=== PATIENT | male | born 1955 ===

== ENCOUNTER 2021-11-16 15:48 | Emergency (ER) | payer BC ==
[2021-11-16] MEDS ORDERED: NA CHLORIDE 0.9% 500 ML ONE (17:34)
[2021-11-16 17:42] LABS: Urine Blood 1+ (Negative); Urine Glucose Negative (Negative); Urine Protein Negative (Negative); Urine Specific Gravity >=1.030 (1.005-1.030)
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
--- NOTE | 2021-11-16 18:26 | RAD REPORT ---
EXAM DESCRIPTION: RAD - Hip Left 2 View - 11/16/2021 5:42 pm CLINICAL HISTORY: PAIN COMPARISON: No comparisons FINDINGS: AP and frogleg views of the left hip were obtained. There is no fracture or dislocation. No acute or destructive bony process seen. Minimal degenerative change along the superior acetabular rim. Mild SI joint degenerative changes are present. No soft tissue abnormality. IMPRESSION: Negative left hip examination for acute or significant findings.
[2021-11-16 18:27] LABS: Absolute Lymphocytes (CBC) 0.9 K/uL (0.7-4.9); Hematocrit 40.4 % (39.6-49.0); Lymphocytes % 6.6 % (15.3-44.8); MPV 7.8 fL (7.6-11.3); RBC Red Blood Cell Count 4.31 M/uL (4.33-5.43)
[2021-11-16 18:39] LABS: Potassium 4.3 mmol/L (3.5-5.1)
[2021-11-16] MEDS ORDERED: TETANUS & DIPHTHERIA TOX,ADULT 0.5 ML VIAL ONE (19:08)
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
[2021-11-16 21:43] VITALS: TEMP 99; O2SAT 100
[2021-11-16 21:45] VITALS: BP 139/88
== END 2021-11-16 20:46 | disposition home or self-care (01) ==
LOC: ER 15:48
DX: S50.312A Abrasion of left elbow, initial encounter (principal); S30.1XXA Contusion of abdominal wall, initial encounter; V18.0XXA Pedal cycle driver injured in noncollision transport accident in nontraffic accident, initial encounter; Z23 Encounter for immunization
CPT/HCPCS: 87088; 85025; 87086; 80048; 36415; 86900; 86850; 86901; 81003; 70450; 72125; 71260; 74177; 72170; 73502; 90714; Q9967; J7040; 90471; 96360; 99284